=== PATIENT | female | born 2000 | race Hispanic/Latino ===

== ENCOUNTER 2025-03-11 11:31 | Emergency (ER) | payer OTHER ==
[2025-03-11] MEDS ORDERED: NA CHLORIDE 0.9% 1,000 ML ONE (11:40)
[2025-03-11 12:09] LABS: Absolute Monocytes 0.5 K/uL (0.1-1.3); Absolute Neutrophil 7.9 K/uL (1.8-8.0); Basophils % 0.2 % (0-1.3); Eosinophils % 0.3 % (0-4.4); Hemoglobin 10.6 g/dL (12.0-15.0); Lymphocytes % 10.8 % (15.3-44.8); MCH 24.4 pg (27.0-35.0); MCHC 33.2 g/dL (32.0-36.0); MCV 73.4 fL (80-100); MPV 8.8 fL (7.6-11.3); Monocytes % 5.5 % (3.3-12.3); Neutrophils % 83.2 % (41.7-73.7); Nucleated Red Blood Cells % 0.1 % (0-0); Platelets 217 thou/uL (152-406); RBC Red Blood Cell Count 4.35 M/uL (3.86-4.86); Red Cell Distribution Width 17.7 % (12.1-15.2)
[2025-03-11 12:20] LABS: Specific Gravity 1.028 (1.005-1.030); Sqamous Epithelial <5 /HPF (None Seen); Urine Bacteria <20 /HPF (<20); Urine Bilirubin NEGATIVE (Negative); Urine Blood Negative (Negative); Urine Clarity Extremely Turbid (Clear); Urine Color Yellow (Yellow); Urine Crystals Unidentified Few /HPF (None Seen); Urine Culture Reflex Order NOT NEEDED; Urine Glucose NEGATIVE (Negative); Urine Ketones NEGATIVE (Negative); Urine Microscopic Reflex YN ORDER UMIC; Urine Mucus 1+ /HPF (None Seen); Urine Nitrite NEGATIVE (Negative); Urine Protein 1+ (Negative); Urine RBC <5 /HPF (None Seen); Urine Urobilinogen Normal (Normal); Urine WBC Clump Occasional /HPF (None Seen)
[2025-03-11 12:27] LABS: Albumin 3.7 g/dL (3.4-5.0); Albumin/Globulin Ratio 0.9 (1.1-1.8); Alkaline Phosphatase 90 U/L (45-117); Anion Gap 8.4 mEq/L (5.0-15.0); BUN Blood Urea Nitrogen 9 mg/dL (7-18); Bicarbonate 23 mEq/L (21-32); Bilirubin Total 0.4 mg/dL (0.2-1.0); Globulin 4.2 g/dL (2.3-3.5); Glomerular Filtration Rate 127 ml/min (=/>90); Glucose Level 82 mg/dL (74-106); Lipase 30 U/L (13-75); Potassium 3.4 mEq/L (3.5-5.1); Protein, Total 7.9 g/dL (6.4-8.2); Sodium Level 135 mEq/L (136-145)
[2025-03-11 12:28] LABS: ALT/SGPT < 14 U/L (13-56); AST/SGOT < 10 U/L (15-37)
[2025-03-11] MEDS ORDERED: ACETAMINOPHEN 325 MG TABLET ONE (12:50)
--- NOTE | 2025-03-11 12:56 | EDPHYS ---
Physician Documentation [facility] Name: Manisha Preciado Age: 24 yrs Sex: Female : 2000 Arrival Date: 03/11/2025 Time: 11:31 Bed 10 Private MD: ED Physician Ramiro Montana HPI: 03/11 12:53 This 24 yrs old Female presents to ER via Ambulatory with complaints of Lower kb Back Pain, 9wks . 12:53 Pt is a 24 year old female who presents for pain to right side of back that started kb last night. States pain is worse with movement. Denies urinary symptoms, n/v/d, fever. . 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 - Infectious Disease History:: Denies. - Social history:: Smoking status: Patient denies any tobacco usage or history of. ROS: 12:54 Constitutional: As per HPI kb Exam: 12:54 Constitutional: This is a well developed, well nourished patient who is awake, alert, kb and in no acute distress. Head/Face: Normocephalic, atraumatic. ENT: Moist Mucous membranes Cardiovascular: Regular rate Respiratory: Respirations even and unlabored. No increased work of breathing. Talking in full sentences Abdomen/GI: Soft, non-tender. No distention Back: No spinal tenderness. No costovertebral tenderness. Full range of motion. Skin: Warm, dry with normal turgor. Normal color. MS/ Extremity: Pulses equal, no cyanosis. Neurovascular intact. Full, normal range of motion. Neuro: Awake and alert, GCS 15, oriented to person, place, time, and situation. Vital Signs: 11:39 BP 104 / 73; Pulse 93; Resp 16; Temp 98.3(O); Pulse Ox 100% on R/A; Weight 48.99 kg; iw Height 5 ft. 0 in. ; Pain 7/10; 11:39 Body Mass Index 21.09 (48.99 kg, 152.4 cm) iw 11:39 Pain Scale: Adult iw MDM: 11:35 Medical Screening Exam initiated kb 12:54 Differential diagnosis: uti, pyelonephritis, kidney stone, strain. Data reviewed: vital kb signs, nurses notes. Test considered but Not performed: Ultrasound Renal US considered but pt has no CVA tenderness, no hematuria/urinary symptoms. . Counseling: I had a detailed discussion with the patient and/or guardian regarding the historical points, exam findings, and any diagnostic results supporting the discharge/admit diagnosis, lab results, the need for outpatient follow up, a family practitioner, to return to the emergency department if symptoms worsen or persist or if there are any questions or concerns that arise at home. 03/11 11:41 Order name: CBC with Diff; Complete Time: 12:14 kb 03/11 11:41 Order name: CMP; Complete Time: 12:28 kb 03/11 11:41 Order name: Lipase; Complete Time: 12:28 kb 03/11 11:41 Order name: Urinalysis w/ reflexes; Complete Time: 12:23 kb 03/11 11:41 Order name: IV Saline Lock; Complete Time: 11:58 kb 03/11 11:41 Order name: Labs collected and sent; Complete Time: 11:58 kb Administered Medications: 11:58 Drug: NS 0.9% IV 1000 ml IV at 1 bolus Per protocol; to be given as a bolus over 60 iw minutes Route: IV; Rate: 1 bolus; Site: right antecubital; 13:00 Follow up: IV Status: Completed infusion iw 13:05 Drug: Acetaminophen PO 650 mg PO once Route: PO; iw 13:20 Follow up: Response: No adverse reaction iw Disposition Summary: 03/11/25 12:55 Discharge Ordered Notes: Location: Home kb Condition: Stable kb Diagnosis - Low back pain kb Followup: kb - With: Private Physician - When: 2 - 3 days - Reason: Recheck today's complaints, Continuance of care, Re-evaluation by your physician Followup: kb - With: Emergency Department - When: As needed - Reason: Worsening of condition Discharge Instructions: - Discharge Summary Sheet kb - Musculoskeletal Pain kb - Flank Pain, Adult, Veet-bc-Stux kb Forms: - Medication Reconciliation Form kb - Antibiotic Education kb - Prescription Opioid Use kb - Patient Portal Instructions kb - Leadership Thank You Letter kb - Family Work Release ss Addendum: 03/13/2025 09:01 Co-signature as Attending Physician, Ramiro Montana MD I reviewed the patient's care r n provided by the Advanced Practice Provider and agree with the diagnosis and treatment plan. Signatures: Dispatcher [employer] Juana Michael FNP-C FNP-Lizette Goff, RN RN iw Ramiro Montana MD MD manager e learning: (The following items were deleted from the chart) 03/11 11:41 11:41 CBC+H.LAB.BRZ ordered. EDMS EDMS 11: 11:41 COMPREHENSIVE METABOLIC PANEL+C.LAB.BRZ ordered. EDMS EDMS 11:41 11:41 LIPASE+C.LAB.BRZ ordered. EDMS EDMS 11:41 11:41 Urinalysis+U.LAB.BRZ ordered. EDMS EDMS
--- NOTE | 2025-03-11 12:56 | ER ---
Nurse's Notes [facility] Name: Manisha Preciado Age: 24 yrs Sex: Female : 2000 Arrival Date: 03/11/2025 Time: 11:31 Bed 10 Private MD: Diagnosis: Low back pain Presentation: 03/11 11:39 Chief complaint: Patient states: right mid back pain since last night , denies urinary iw symptoms. Coronavirus screen: At this time, the client does not indicate any symptoms associated with coronavirus-19. Ebola Screen: No symptoms or risks identified at this time. Initial Sepsis Screen: Does the patient meet any 2 criteria? No. Patient's initial sepsis screen is negative. Does the patient have a suspected source of infection? No. Patient's initial sepsis screen is negative. Risk Assessment: Do you want to hurt yourself or someone else? Patient reports no desire to harm self or others. Onset of symptoms was March 10, 2025. 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 - Infectious Disease History:: Denies. - Social history:: Smoking status: Patient denies any tobacco usage or history of. Screenin:45 [facility] ED Fall Risk Assessment (Adult) History of falling in the last 3 months, iw including since admission No falls in past 3 months (0 pts) Confusion or Disorientation No (0 pts) Intoxicated or Sedated No (0 pts) Impaired Gait No (0 pts) Mobility Assist Device Used No (0 pt) Altered Elimination No (0 pt) Score/Fall Risk Level 0 - 2 = Low Risk Oriented to surroundings, Maintained a safe environment. Abuse screen: Denies threats or abuse. Nutritional screening: No deficits noted. Tuberculosis screening: No symptoms or risk factors identified. Assessment: 11:44 General: Appears in no apparent distress. Behavior is calm, cooperative. Pain: iw Complains of pain in right subscapular area and right mid back. Neuro: Level of Consciousness is awake, alert, obeys commands, Oriented to person, place, time, situation, Moves all extremities. Full function. Cardiovascular: Patient's skin is warm and dry. Respiratory: Respiratory effort is even, unlabored, Respiratory pattern is regular, symmetrical. : Denies burning with urination. Derm: Skin is intact, is healthy with good turgor. Musculoskeletal: Range of motion: intact in all extremities. 12:45 Reassessment: Patient appears in no apparent distress at this time. Patient and/or iw family updated on plan of care and expected duration. Pain level reassessed. Patient is alert, oriented x 3, equal unlabored respirations, skin warm/dry/pink. Vital Signs: 11:39 BP 104 / 73; Pulse 93; Resp 16; Temp 98.3(O); Pulse Ox 100% on R/A; Weight 48.99 kg; iw Height 5 ft. 0 in. ; Pain 7/10; 11:39 Body Mass Index 21.09 (48.99 kg, 152.4 cm) iw 11:39 Pain Scale: Adult iw ED Course: 11:35 Patient arrived in ED. [email or web address] 11:35 Juana Barber FNP-C is PHCP. kb 11:35 Ramiro Montana MD is Attending Physician. kb 11:40 Triage completed. iw 11:42 Lizette Alvarez, RN is Primary Nurse. iw 11:44 Arm band placed on. iw 11:45 Patient has correct armband on for positive identification. iw 11:45 No provider procedures requiring assistance completed. iw 11:52 Initial lab(s) drawn, by me, sent to lab. Inserted saline lock: 22 gauge in right iw antecubital area, using aseptic technique. Blood collected. Flushed with 10 mL NS. 13:05 IV discontinued, intact, bleeding controlled, No redness/swelling at site. Pressure iw dressing applied. Administered Medications: 11:58 Drug: NS 0.9% IV 1000 ml IV at 1 bolus Per protocol; to be given as a bolus over 60 iw minutes Route: IV; Rate: 1 bolus; Site: right antecubital; 13:00 Follow up: IV Status: Completed infusion iw 13:05 Drug: Acetaminophen PO 650 mg PO once Route: PO; iw 13:20 Follow up: Response: No adverse reaction iw Medication: 11:44 VIS not applicable for this client. iw Outcome: 12:55 Discharge ordered by . kb 13:06 Discharged to home ambulatory, with family, iw 13:06 Condition: good 13:06 Discharge instructions given to patient, Instructed on discharge instructions, follow up and referral plans. Demonstrated understanding of instructions, follow-up care, 13:06 Patient left the ED. iw Signatures: Juana Barber, PROCESSING ASSOCIATE-C PROCESSING ASSOCIATE-CkLizette Arana, RN RN iw Brittany Goss [email or web address] Corrections: (The following items were deleted from the chart) 11:40 11:39 BP 104 / 73; Pulse 103bpm; Resp 16bpm; Pulse Ox 100% RA; iw iw 11:42 11:39 BP 104 / 73; Pulse 93bpm; Resp 16bpm; Pulse Ox 100% RA; iw iw
[2025-03-13 17:17] VITALS: BP 104/73; TEMP 98.3; O2SAT 100
== END 2025-03-11 13:06 | disposition home or self-care (01) ==
LOC: ER 11:31
DX: O26.891 Other specified pregnancy related conditions, first trimester (principal); M54.50 Low back pain, unspecified; Z3A.09 9 weeks gestation of pregnancy
CPT/HCPCS: 85025; 81001; 36415; 83690; 80053; 96360; 99284; J7030